=== PATIENT | male | born 1950 | race Caucasian/White ===

== ENCOUNTER 2022-03-02 14:41 | Emergency (ER) | payer OTHER ==
[~2022-03-02] VITALS: Ht 165.1 cm; Wt 62.6 kg
[2022-03-02 14:46] VITALS: BP_SYST 153
[2022-03-02] MEDS ORDERED: MORPHINE 4 MG INJ. 4 MG/ML VIAL IM ONE (15:00)
--- NOTE | 2022-03-02 15:00 | NUR ---
ER DR. BROWN EXAMINING PT IN TRIAGE
--- NOTE | 2022-03-02 16:45 | NUR ---
Placed in room 08 . Placed on site monitor, blood pressure machine and pulse oximeter. To gown for exam. Side rails up.
--- NOTE | 2022-03-02 16:50 | NUR ---
PT BIB FROM HOME, C/O RIGHT SHOULDER PAIN AFTER FALLING FROM ROOF TODAY WHILE CLEANING. PT IS AMBULATORY, AAOX4, VSS
[2022-03-02] MEDS ORDERED: MIDAZOLAM HCL 5 MG/5 ML VIAL IVP ONE ×2 (17:00→19:45)
[2022-03-02] MEDS ORDERED: KETAMINE HCL 500 MG/10 ML VIAL IVP ONE ×2 (17:00→19:45)
--- NOTE | 2022-03-02 17:24 | NUR ---
XRAY AT THE BEDSIDE
[2022-03-02] MEDS ORDERED: HYDR-3917 PO (18:55)
[2022-03-02] MEDS ORDERED: IBUP-1971 PO (18:55)
--- NOTE | 2022-03-02 19:20 | NUR ---
REC REPORT FROM GERMÁN DAVILA. PT AWAKE IN BED, A&O X4. VSS. SAFETY PRECAUTIONS IN PLACE AND CONNECTED TO MONITOR.
--- NOTE | 2022-03-02 19:20 | NUR ---
REPORT GIVEN TO AMINA RN FOR CONTINUING CARE
--- NOTE | 2022-03-02 21:23 | NUR ---
PT RESTING IN BED, AWAKE. A&O X4. VSS. SAFETY PRECAUTIONS IN PLACE AND CONNECTED TO MONITOR.
[2022-03-02 22:05] VITALS: BP_SYST 165
--- NOTE | 2022-03-02 22:05 | NUR ---
Patient given written and verbal discharge instructions and verbalizes understanding. ER DR. BROWN discussed with patient the results and treatment provided. Patient in stable condition. ID arm band removed. IV catheter removed intact and dressing applied, no active bleeding. Rx of norco and motrin given. Patient educated on pain management and to follow up with PMD. Pain Scale 0. Opportunity for questions provided and answered. Medication side effect fact sheet provided.
== END 2022-03-02 22:05 | disposition home or self-care (01) ==
LOC: SED 14:41
DX: S43.015A Anterior dislocation of left humerus, initial encounter (principal); Z79.899 Other long term (current) drug therapy; W13.2XXA Fall from, out of or through roof, initial encounter; Y93.89 Activity, other specified; Y92.89 Other specified places as the place of occurrence of the external cause; Y99.8 Other external cause status
CPT/HCPCS: 99285; 23650; 73030; 99152; 73020; J2250; J2270